=== PATIENT | male | born 1955 | race Caucasian/White ===

== ENCOUNTER → 2020-11-26 | Outpatient (CLI) | payer OTHER ==
[~2020-11-26] MED LIST: AZITHROMYCIN250 MG PO; LIPITOR40 MG PO; PERCOCET 5/325 T1 EA PO; PRILOSEC OTC20 MG PO; PROSCAR5 MG PO; TYLENOL W/CODEIN1 E1 PO
== END ==
LOC: KOH-I 09:08
DX: F17.210 Nicotine dependence, cigarettes, uncomplicated (principal); R91.8 Other nonspecific abnormal finding of lung field
CPT/HCPCS: 71271

== ENCOUNTER 2020-12-15 11:30 | Emergency (ER) | payer OTHER ==
[~2020-12-15 11:30] MED LIST changes: -AZITHROMYCIN250 MG PO
[2020-12-15 12:03] LABS: HEMOGLOBIN 15.3 gm/dl (14.0-17.5); RED BLOOD COUNT 4.65 M/UL (4.20-5.50); WHITE BLOOD COUNT 12.5 K/UL (4.5-11.0)
[2020-12-15 12:26] LABS: BUN/CREATININE RATIO 19 (0-10)
[2020-12-15] MEDS ORDERED: AZITHROMYCIN250 MG PO (18:16)
== END 2020-12-15 18:40 | disposition home or self-care (01) ==
LOC: ER1 11:30
PROVIDERS: Emergency Medicine
DX: J44.1 Chronic obstructive pulmonary disease with (acute) exacerbation (principal); N43.3 Hydrocele, unspecified; R10.32 Left lower quadrant pain; Z20.822 Contact with and (suspected) exposure to COVID-19; K21.9 Gastro-esophageal reflux disease without esophagitis; F17.210 Nicotine dependence, cigarettes, uncomplicated; N40.0 Benign prostatic hyperplasia without lower urinary tract symptoms; Z85.828 Personal history of other malignant neoplasm of skin; Z71.6 Tobacco abuse counseling
CPT/HCPCS: 71045; 76870; 80053; 81001; 82150; 83690; 85025; 87081; 87880; 99284; Q9967; U0002; U0003

== ENCOUNTER → 2021-11-06 | Outpatient (CLI) | payer OTHER ==
[~2021-11-06] VITALS: Ht 167.6 cm; Wt 63.5 kg
[~2021-11-06] MED LIST changes: +AZITHROMYCIN250 MG PO
== END ==
LOC: EROP 11:06
DX: U07.1 COVID-19 (principal); Z23 Encounter for immunization
CPT/HCPCS: 96365

== ENCOUNTER → 2021-12-10 | Outpatient (CLI) | payer MEDICARE, OTHER | LOC: RAD 11:26 | DX: R05.9 Cough, unspecified (principal) | CPT/HCPCS: 71046 ==

== ENCOUNTER → 2021-12-18 | Outpatient (CLI) | payer MEDICARE, OTHER | LOC: KOH-I 09:46 | DX: R06.02 Shortness of breath (principal) | CPT/HCPCS: 71046 ==

== ENCOUNTER → 2021-12-31 | Outpatient (CLI) | payer MEDICARE, OTHER | LOC: CT 13:30 | DX: J44.9 Chronic obstructive pulmonary disease, unspecified (principal); R59.0 Localized enlarged lymph nodes | CPT/HCPCS: 71270; Q9967 ==

== ENCOUNTER → 2022-01-21 | Outpatient (CLI) | payer MEDICARE, OTHER | LOC: KOH-I 01-10 14:00 | DX: I73.9 Peripheral vascular disease, unspecified (principal) | CPT/HCPCS: 93922; 93925 ==

== ENCOUNTER → 2022-07-11 | Outpatient (CLI) | payer MEDICARE, OTHER | LOC: US 07-08 09:15 | DX: F17.210 Nicotine dependence, cigarettes, uncomplicated (principal) | CPT/HCPCS: 93979 ==